=== PATIENT | female | born 1950 | race Caucasian/White ===

== ENCOUNTER → 2021-11-24 | Outpatient (CLI) | payer BC, MEDICARE, OTHER ==
--- NOTE | 2021-11-24 13:40 | KCIC ---
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 A rectal tube was placed in the rectum and bal loon gently inflated to secure the tube. Contrast was administered retrograde through the rectal tube and multiple fluoroscopic and overhead images of the abdomen were obtained in various positions per single contrast barium enema protocol. FINDINGS: The colon distends normally with contrast. Contrast quickly reached the cecum. There is mi ld sigmoid diverticulosis. No evidence of mass or stricture. Total fluoroscopic time 2 minutes 1 second. 12 images saved. IMPRESSION: Mild sigmoid diverticulosis. Otherwise normal barium enema. Electronically signed by: Marla Black MD (11/24/2021 1:38 PM) [id number]
== END ==
LOC: KCIC 08:03
PROVIDERS: ATTEND Internal Medicine Gastroenterology
DX: K57.30 Diverticulosis of large intestine without perforation or abscess without bleeding (principal); K59.00 Constipation, unspecified
CPT/HCPCS: 74270